=== PATIENT | male | born 1995 | race Caucasian/White ===

== ENCOUNTER 2020-07-27 19:35 | Outpatient (CLI) | payer SELFPAY ==
[2020-07-27 20:03] LABS: PH Semen 8.5 (7.0-8.0); Viscosity Semen High Viscosity
[2020-07-27 20:06] LABS: Red Blood Count Semen 0-4 /hpf
[2020-07-27 21:15] LABS: Sperm Immotility 55 % (50-60); Sperm Non-Progressive Motility 4 % (5-10); Sperm Progressive Motility 41 % (31-34)
[2020-07-27 21:29] LABS: Side 2 88
[2020-07-27 21:30] LABS: Side 1 79
[2020-07-28 07:22] LABS: Pathology Referral Yes; Sperm Vitality-% Live Sperm 95 %
== END 2020-07-27 19:36 | disposition home or self-care (01) ==
LOC: LAB 19:37
PROVIDERS: Family Provider Pediatrics; Visit Provider Nurse Practitioner Women's Health
DX: N46.9 Male infertility, unspecified (principal)
CPT/HCPCS: 80500; 89320

== ENCOUNTER 2021-02-15 00:25 | Outpatient (CLI) | payer SELFPAY ==
[2021-02-15 00:44] LABS: Viscosity Semen High Viscosity
[2021-02-15 01:41] LABS: Red Blood Count Semen 0-4 /hpf; Sperm Non-Progressive Motility 8 % (5-10); Sperm Progressive Motility 21 % (31-34); White Blood Count Semen 0-4 /hpf
[2021-02-15 01:44] LABS: Side 1 106
[2021-02-15 01:45] LABS: Side 2 101; Sperm Count 103.5 mill/mL (40-160)
[2021-02-15 02:33] LABS: Pathology Referral Yes; Sperm Vitality-% Live Sperm 62 %
[2021-02-15 02:44] LABS: Sperm Immotility 70 % (50-60)
== END 2021-02-15 00:26 | disposition home or self-care (01) ==
LOC: LAB 00:29
PROVIDERS: Visit Provider Obstetrics & Gynecology
DX: N46.9 Male infertility, unspecified (principal)
CPT/HCPCS: 80500; 89320

== ENCOUNTER 2021-07-24 22:38 | Emergency (ER) | payer OTHER, SELFPAY ==
[2021-07-24 22:52] VITALS: BP 144/97; PULSE 69; RESP 20; TEMP 36.8; O2SAT 98; BMI 25.0
--- NOTE | 2021-07-24 22:58 | CTR_ITS ---
PROCEDURE INFORMATION: Exam: CT Abdomen And Pelvis Without Contrast Exam date and time: 07/24/2021 10:58 PM Age: 25 years old Clinical indication: Abdominal pain; Localized; Left lower quadrant (llq); Patient HX: Llq pain; Additional info: Left sided abd pain TECHNIQUE: Imaging protocol: Computed tomography of the abdomen and pelvis without contrast. Radiation optimization: All CT scans at this facility use at least one of these dose optimization techniques: automated exposure control; mA and/or kV adjustment per patient size (includes targeted exams where dose is matched to clinical indication); or iterative reconstruction. COMPARISON: No relevant prior studies available. RADIATION DOSE METRICS: Total DLP (mGy-cm): 937.79 FINDINGS: Lungs: Slight stranding in the right middle lobe. Mediastinal space: Small hiatal hernia. Liver: Unremarkable liver. Gallbladder and bile ducts: No calcified gallstones or biliary ductal dilatation. Pancreas: Unremarkable pancreas. Spleen: No splenomegaly. Adrenal glands: No adrenal mass. Kidneys and ureters: A few tiny or small stones and increased density in multiple papillae in the kidneys. No right hydronephrosis. Mild left hydronephrosis and slight dilatation of the very proximal left ureter due to the 2 x 1.8 mm stone in the proximal aspect of this ureter. Stomach and bowel: Increased fat in the carlisle of the upper colon, but no apparent colonic wall thickening. No obstruction. Appendix: Normal appendix. Intraperitoneal space: No free air. Mild central calcification in the ovoid 9 x 13 mm circumscribed mass between the rectum and seminal vesicles. Vasculature: Unremarkable. Lymph nodes: Enlarged right mediastinal nodes. No enlarged nodes elsewhere. Urinary bladder: Unremarkable as visualized. Reproductive: Unremarkable as visualized. Bones/joints: Old slight compression fractures. Degeneration of a few discs. Soft tissues: No acute finding. CT/CT kidney stone [id number] IMPRESSION: 1. 2 x 1.8 mm stone in the proximal left ureter causing mild obstruction. Nephrolithiasis. 2. Increased fat in the carlisle of the upper colon indicating the possibility of chronic inflammation. 3. Calcified node or peritoneal inclusion body in the pelvis. Small hiatal hernia. Other findings detailed above. COMMENTS: Consistent with the [employer]'s Incidental Findings Committee white paper ([employer] 2018): Any incidental renal lesion less than 1 cm or classified as too small to characterize, or any incidental cystic renal lesion characterized as simple-appearing, is likely benign. No follow-up imaging is recommended for these lesions per consensus recommendations based on imaging criteria. Radiation Dose CTDIVOL = (mGy): DLP = 937.79 (mGy-cm)
[2021-07-24 23:03] VITALS: RESP 16
[2021-07-24] MEDS: HYDROmorphone 1 mg/mL INJ 1 mL IVP (23:03)
[2021-07-24 23:05] LABS: Basophils % 0.3 %; Eosinophils # 0.3 10^3/uL (0.0-0.8); Eosinophils % 2.4 %; Hemoglobin 16.2 g/dL (11.7-16.6); Lymphocytes # 2.4 10^3/uL (0.8-4.8); Lymphocytes % 18.1 %; Mean Corpuscular HGB Conc 35.2 g/dL (30.0-36.0); Mean Corpuscular Hemoglobin 31.2 pg (28.0-34.0); Mean Corpuscular Volume 88.6 fl (80-94); Mean Platelet Volume 9.7 fL (7.4-10.4); Monocytes # 0.8 10^3/uL (0.2-0.9); Neutrophils # 9.53 10^3/uL (1.8-7.7); Neutrophils % 72.9 %; Nucleated Red Blood Cells % 0 %; Platelet Count 333 10^3/cmm (130-400); Red Blood Count 5.19 10^6/uL (4.1-5.3); Red Cell Distribution Width 11.8 % (12.1-15.1); White Blood Count 13.1 10^3/uL (4.0-10.0)
[2021-07-24] MEDS: ondansetron 2 mg/ML SDV 2 mL 4 MG IVP (23:06)
[2021-07-24] MEDS: sodium chloride 0.9% 1,000 ML 999 ML IV (23:06)
[2021-07-24 23:08] VITALS: BP 134/72; PULSE 102; RESP 18; TEMP 37.2; O2SAT 99
[2021-07-24 23:20] LABS: Alanine Aminotransferase 24 U/L (0-41); Albumin Level 4.8 g/dL (3.5-5.2); Alkaline Phosphatase 83 IU/L (40-130); Anion Gap 18.4 (5-19); Aspartate Amino Transferase 17 U/L (0-40); Blood Urea Nitrogen 12 mg/dL (6-20); C Reactive Protein 1.3 mg/L (0.0-4.9); Calcium 9.8 mg/dL (8.5-10.5); Carbon Dioxide 24 mmol/L (22-29); Chloride 99 mmol/L (98-107); Creatinine Clr Calc Pharmacy 113.7854; Globulin 3.3 g/dL (1.3-4.6); Glomerular Filtration Rate 102.8 mL/min (90-130); Glucose 141 mg/dL (65-115); Lipase 15 U/L (13-60); Osmolality Calculated 288 mOsm/kg (285-295); Potassium 3.4 mmol/L (3.5-5.1); Sodium 138 mmol/L (136-145); Total Bilirubin 0.7 mg/dL (0.15-1.2); Total Protein 8.1 g/dL (6.6-8.7)
[2021-07-25 00:07] VITALS: RESP 15
[2021-07-25] MEDS: HYDROmorphone 1 mg/mL INJ 1 mL IVP (00:07)
--- NOTE | 2021-07-25 01:12 | W.ED.ABDPA2 ---
HPI - Abdominal Pain General: Chief Complaint: Abdominal Pain Stated Complaint: L ABD Pain Time Seen by Provider: 07/24/21 22:48 History of Present Illness: HPI narrative: 25-year-old male with left flank pain today radiating into his belly and groin. Has not had this pain before. He states he had a similar pain 2 days ago, seem to go away, but was much worse today. Nausea, no fever, no vomiting, no diarrhea. No hematuria that he knows of MD elicited complaint: abdominal pain and flank pain Pertinent past history: none Onset (ago): hour(s) Pain Consistency: intermittent Location: L flank Severity: moderate Quality: cramping and stabbing Radiation: suprapubic and L flank Relieving factors: nothing Associated Symptoms: Reports nausea; Denies change in bowel habits, change in stool character, chills, constipation, diarrhea, dysuria and fever(s) Review of Systems Const: Denies: fever(s) or chills Eyes: Denies: change in vision Card: Denies: chest pain or palpitations Resp: Denies: dyspnea, productive cough or non-productive cough GI: Reports: nausea; Denies: diarrhea, constipation, change in bowel habits or change in stool character : Reports: flank pain; Denies: difficulty urinating or dysuria PFSH ED PFSH: Family History Father CAD (coronary artery disease) Social History Smoking and tobacco status: light tobacco smoker smokeless tobacco Smokeless tobacco user: chewing tobacco Alcohol intake: current Alcohol intake frequency: holidays/special occasions only Marital status: Current occupational status: employed Physical Exam Const: COMMON NORMALS: patient oriented x3 GENERAL APPEARANCE: cooperative, in distress and ill appearing HENMT: COMMON NORMALS: normocephalic HEAD & SCALP: normocephalic Eye: COMMON NORMALS: Equal, round and reactive pupils present and EOMs intact bilaterally PUPIL: Yes Equal, round and reactive pupils present Neck/C-Spine: COMMON NORMALS: no lymphadenopathy Chest: COMMONS NORMALS: normal inspection of the chest Resp: COMMON NORMALS: normal respiratory effort, No use of accessory muscles and clear to auscultation bilaterally AUSCULTATION: clear to auscultation bilaterally Cardio: COMMON NORMALS: regular rhythm RATE: tachycardic RHYTHM: regular rhythm GI: COMMON NORMALS: Soft to palpation INSPECTION: Yes normal to inspection PALPATION: Yes Soft to palpation and Yes Tenderness to palpation present (GI) Details: LLQ : BLADDER/KIDNEY EXAM: Yes CVA tenderness on the left Back/Pelvis: GENERAL BACK: Yes CVA tenderness Neuro: COMMON NORMALS: patient oriented x3 Course Vital Signs: Vital signs: Vital Signs Temperature 98.9 F 07/25/21 02:29 Pulse Rate 74 07/25/21 02:29 Respiratory Rate 15 07/25/21 02:29 Blood Pressure 134/72 07/24/21 23:08 Pulse Oximetry 97 07/25/21 02:29 MDM - Abdominal Pain MDM Narrative: Medical decision making narrative: 2 x 1.8 mm stone in the left proximal ureter causing mild hydronephrosis, likely the source of his symptoms. Laboratory is benign. Awaiting urinalysis. Urinalysis shows hematuria. It is negative for infection. He will be allowed home with pain medication, symptom control otherwise. Lab Data: Labs: Lab Results 07/24/21 07/24/21 07/25/21 22:53 22:53 01:40 WBC 13.1 10^3/uL H 10 ^3/uL (4.0-10.0) RBC 5.19 10^6/uL 10^6 /uL (4.1-5.3) Hgb 16.2 g/dL g/dL (11.7-16.6) Hct 46.0 % % (42.0-52.0) MCV 88.6 fl fl (80-94) MCH 31.2 pg pg (28.0-34.0) MCHC 35.2 g/dL g/dL (30.0-36.0) RDW 11.8 % L % (12.1-15.1) Plt Count 333 10^3/cmm 10^3 /cmm (130-400) MPV 9.7 fL fL (7.4-10.4) Neut % (Auto) 72.9 % % Lymph % (Auto) 18.1 % % Talbot % (Auto) 6.0 % % Eos % (Auto) 2.4 % % Baso % (Auto) 0.3 % % Neut # (Auto) 9.53 10^3/uL H 10 ^3/uL (1.8-7.7) Lymph # (Auto) 2.4 10^3/uL 10^3/ uL (0.8-4.8) Talbot # (Auto) 0.8 10^3/uL 10^3/ uL (0.2-0.9) Eos # (Auto) 0.3 10^3/uL 10^3/ uL (0.0-0.8) Baso # (Auto) 0.0 10^3/uL 10^3/ uL (0.0-0.1) Nucleated RBC % (a uto) 0 % % Nucleated RBCs # 0.0 /100WBC /100W BC Sodium 138 mmol/L mmol/L (136-145) Potassium 3.4 mmol/L L mmol /L (3.5-5.1) Chloride 99 mmol/L mmol/L (98-107) Carbon Dioxide 24 mmol/L mmol/L (22-29) Anion Gap 18.4 (5-19) BUN 12 mg/dL mg/dL (6-20) Creatinine 0.9 mg/dL mg/dL (0.7-1.2) GFR Calculation 102.8 mL/min mL/m in (90-130) Glucose 141 mg/dL H mg/dL (65-115) Calculated Osmolal ity 288 mOsm/kg mOsm/ kg (285-295) Calcium 9.8 mg/dL mg/dL (8.5-10.5) Total Bilirubin 0.7 mg/dL mg/dL (0.15-1.2) AST 17 U/L U/L (0-40) ALT 24 U/L U/L (0-41) Alkaline Phosphata se 83 IU/L IU/L (40-130) C-Reactive Protein 1.3 mg/L mg/L (0.0-4.9) Total Protein 8.1 g/dL g/dL (6.6-8.7) Albumin 4.8 g/dL g/dL (3.5-5.2) Globulin 3.3 g/dL g/dL (1.3-4.6) Lipase 15 U/L U/L (13-60) Urine Color Nelsy (Yellow) Urine Appearance Sl cloudy A (CLEAR) Urine pH 5 (5-7) Ur Specific Gravit y 1.025 (1.005-1.030) Urine Protein 2+ H (Negative) Urine Glucose (UA) Norm (Normal) Urine Ketones 1+ H (Negative) Urine Blood 3+ H (Negative) Urine Nitrate Negative (Negative) Urine Bilirubin 1+ H (Negative) Urine Urobilinogen 1 mg/dL H mg/dL (Negative) Ur Leukocyte Zena ase Trace H (Negative) Urine RBC >100 /hpf H /hpf (0-2) Urine WBC 5-10 /hpf H /hpf (0-5) Ur Squamous Epith Cells 0-4 /hpf H /hpf (0-5) Amorphous Sediment Not Reportable Urine Bacteria 4+ /hpf H /hpf (NONE) Discharge Plan Discharge Patient Disposition: Home Clinical Impression: Ureterolithiasis Condition: Stable Prescriptions: New Zofran 4 mg tablet 4 mg PO Q6H PRN (Reason: nausea and vomiting) Qty: 10 RF: 0 Percocet 7.5-325 mg tablet 1 tab PO Q6H PRN (Reason: pain) Qty: 10 RF: 0 Flomax 0.4 mg capsule 0.4 mg PO DAILY Qty: 7 RF: 0 No Action sulfamethoxazole-trimethoprim 800-160 mg tablet 1 tab PO BID Qty: 60 RF: 3 Discharge Orders: Discharge ED (Routine); Ordered 07/25/21 Ordered By: Bo Howe Discharge Diet: Advance as tolerated Discharge Activity: Increase activity as tolerated Patient Instructions: Kidney Stones (ED), Opioid Safety Activity Restrictions/Additional Instructions: Return for fever greater than 100, vomiting liquids or medications, inability to control pain sufficiently with medication, other concerning symptoms. Take the Flomax daily to increase your chance of passing the stone on your own. Call urology Tuesday for follow-up appointment. Use pain and nausea medication as needed. Coding Level of Care Code ED Leadership Program Intern for Staci Fwd Exam Comprehensive
[2021-07-25 01:49] LABS: Add Urine Microscopic? YES; Bilirubin Urine 1+ (Negative); Blood Urine 3+ (Negative); Glucose Urine UA Norm (Normal); Ketones Urine 1+ (Negative); Leukocyte Esterase Urine Trace (Negative); Nitrate Urine Negative (Negative); Protein Urine 2+ (Negative); Specific Gravity, Urine 1.025 (1.005-1.030); Urine Color Amber (Yellow); Urobilinogen Urine 1 mg/dL (Negative); pH Urine 5 (5-7)
[2021-07-25] MEDS: sodium chloride 0.9% 1,000 ML 999 ML IV (01:53)
[2021-07-25 01:54] LABS: Add Urine Culture? Yes; Bacteria Urine 4+ /hpf; RBC Urine >100 /hpf (0-2); Squamous Epithelial Cell Urine 0-4 /hpf (0-5)
[2021-07-25 02:29] VITALS: PULSE 74; RESP 15; TEMP 37.2; O2SAT 97
== END 2021-07-25 02:25 | disposition home or self-care (01) ==
PROVIDERS: Emergency Provider Emergency Medicine
DX: N20.1 Calculus of ureter (principal); F17.220 Nicotine dependence, chewing tobacco, uncomplicated
CPT/HCPCS: 74176; 80053; 81001; 83690; 85025; 86140; 87086; 96361; 96374; 96375; 96376; 99284; J1170; J2405; J7030

== ENCOUNTER 2021-07-29 09:54 | Outpatient (CLI) | payer OTHER, SELFPAY ==
--- NOTE | 2021-07-29 09:59 | XR_ITS ---
WS: [id number] Exam: XR KUB [id number] Date/Time of Exam: 07/29/2021 10:08 AM Reason For Exam: STONES No bowel obstruction or free air. No calcifications seen in the region of the kidneys. Visualized org an margins appear normal. Regional bony elements are intact. XR/XR KUB [id number] IMPRESSION: 1. No acute abdominal process.
== END 2021-07-29 09:55 | disposition home or self-care (01) ==
PROVIDERS: Visit Provider Urology
DX: N20.1 Calculus of ureter (principal)
CPT/HCPCS: 74018; 81003

== ENCOUNTER 2021-08-07 08:05 | Outpatient (CLI) | payer OTHER, SELFPAY ==
--- NOTE | 2021-08-07 08:00 | XR_ITS ---
WS: [id number] XR KUB [id number] REASON FOR EXAM: ureterolithiasis FINDINGS: No right intrarenal calculi can be identified. The small left intrarenal calculi identified on the CT scan of 07/24/2021 are not identifiable. Previous CT scan demonstrated a left ureteral calculus at the L3 level. This calculus is faintly visi ble just below the left L3 transverse process on the abdomen film of 07/29/2021. Subtle density, possibly the same calculus is seen midway between the left transverse processes of L3 and L4 on the current study. No other significant abdominal abnormality. XR/XR KUB [id number] IMPRESSION: Equivocal identification of left ureteral calculus as above.
== END 2021-08-07 08:06 | disposition home or self-care (01) ==
PROVIDERS: Visit Provider Urology
DX: N20.1 Calculus of ureter (principal)
CPT/HCPCS: 74018; 81003

== ENCOUNTER → 2024-10-09 09:11 | Outpatient (BNVA) | payer OTHER, SELFPAY | PROVIDERS: PCP Family Medicine; Visit Provider Family Medicine | DX: K44.9 Diaphragmatic hernia without obstruction or gangrene (principal); E66.3 Overweight | CPT/HCPCS: 80053; 80061; 84439; 84443; 85025 ==

== ENCOUNTER 2024-10-14 19:26 | Emergency (ER) | payer OTHER, SELFPAY ==
[2024-10-14 19:42] VITALS: BP 125/84; PULSE 66; RESP 16; TEMP 37.1; O2SAT 98
--- NOTE | 2024-10-14 21:07 | ED_ITS ---
HPI - Skin/Abscess/Foreign Bdy General: Chief complaint: Skin/Abscess/Foreign Body Stated complaint: infection making joints stiff Time Seen by Provider: 10/14/24 20:57 History of Present Illness: 29-year-old man who presents to the [facility] room with continued cellulitic infection on his head and neck. He was seen by primary. They started him on Bactrim. However only 1 tab twice daily. Related Data Previous Rx's Medication Instructions Recorded ropinirole 0.25 mg tablet 0.25 mg PO DAILY #30 tabs 10/09/24 sulfamethoxazole 800 1 tab PO BID 10 days #20 tabs 10/13/24 mg-trimethoprim 160 mg tablet mupirocin 2 % topical ointment 1 applic topical TID #22 grams 10/14/24 prednisone 20 mg tablet 60 mg (3 x 20 mg) PO DAILY #20 tabs 10/14/24 sulfamethoxazole 800 2 tab PO BID 10 days #40 tabs 10/14/24 mg-trimethoprim 160 mg tablet (Bactrim DS) Allergies Allergy/AdvReac Type Severity Reaction Status Date / Time Penicillins Allergy Unknown Unknown Verified 10/14/24 19:48 Review of Systems Narrative: Constitutional symptoms: Negative except as documented in HPI. Skin symptoms: Negative except as documented in HPI. Eye symptoms: Negative except as documented in HPI. ENMT symptoms: Negative except as documented in HPI. Respiratory symptoms: Negative except as documented in HPI. Cardiovascular symptoms: Negative except as documented in HPI. Gastrointestinal symptoms: Negative except as documented in HPI. Genitourinary symptoms: Negative except as documented in HPI. Musculoskeletal symptoms: Negative except as documented in HPI. Neurologic symptoms: Negative except as documented in HPI. Psychiatric symptoms: Negative except as documented in HPI. Endocrine symptoms: Negative except as documented in HPI. PFSH ED PFSH: Medical History (Updated 10/14/24 @ 21:05 by Susie Barboza MD) Hiatal hernia History of nephrolithiasis Bilateral leg pain Overweight (BMI 25.0-29.9) Left ureteral calculus Family History Father CAD (coronary artery disease) Father Hypertension Social History (Updated 10/09/24 @ 08:24 by Mary Perez LPN) Smoking and tobacco/nicotine status: never used tobacco/nicotine Alcohol intake: current Alcohol intake frequency: holidays/special occasions only Substance/Drug Use: never Marital status: Current occupational status: employed Physical Exam Narrative: EXAM NARRATIVE: General: Alert, no acute distress. Skin: warm and dry. Patient has some vesicular lesions on his neck. Then some other lesions that just appear more like a simple cellulitis. Possibly as bad contact dermatitis Head: Normocephalic Neck: Trachea midline Eye: Extraocular movements are intact. Ears, nose, mouth and throat: Oral mucosa moist Respiratory: Respirations are non-labored Musculoskeletal: Normal ROM Neurological: Alert and oriented, No focal neurological deficit observed. Psychiatric: Cooperative, appropriate mood & affect. Course Vital Signs: Vital signs: Vital Signs Temperature 98.7 F 10/14/24 19:42 Pulse Rate 66 10/14/24 19:42 Respiratory Rate 16 10/14/24 19:42 Blood Pressure 125/84 10/14/24 19:42 Pulse Oximetry 98 10/14/24 19:42 MDM - Skin/Abscess/Foreign Bdy Medicial Decision Making Discussed with the patient if this does not improve with appropriate Bactrim dos ing and steroids and antibiotic cream that he needs to go see a cna hha. Assessment and plan: Cellulitis ?Increasing Bactrim to therapeutic 2 tabs twice daily. - Discharged home - Discussed plan with patient. Answered any questions. - Evaluation and treatment of this problem were appropriate in the emergency setting. No radiology studies performed this visit Discharge Plan Discharge Patient Disposition: Home Clinical Impression: Cellulitis Condition: Stable Prescriptions: New sulfamethoxazole-trimethoprim [Bactrim DS] 800-160 mg tablet 2 tab PO BID 10 Days Qty: 40 0RF mupirocin 2 % ointment 1 applic topical TID Qty: 22 0RF prednisone 20 mg tablet 60 mg PO DAILY Qty: 20 0RF Rx Instructions: 3 tabs (60 mg) x 3 days. 2 tabs (40 mg) x 3 days. 1 tab (20 mg) x 3 days. 1/2 tab (10 mg) x 4 days No Action ropinirole 0.25 mg tablet 0.25 mg PO DAILY Qty: 30 0RF sulfamethoxazole-trimethoprim 800-160 mg tablet 1 tab PO BID 10 Days Qty: 20 0RF Discharge Orders: Discharge ED (Routine); Ordered 10/14/24 Ordered By: Susie Barboza Referrals: Kayden Dunaway MD [Primary Care Provider] - Discharge Diet: Usual diet Discharge Activity: Increase activity as tolerated Patient Instructions: Opioid Safety, Pain Management Activity Restrictions/Additional Instructions: Thank you for choosing [facility] for your healthcare needs today. Please realize this is an emergency room and that we are providing you with a medical screening exam and this may not be complete and all inclusive of all the testing and or work up that you may need to determine your ailment or severity of your illness. You have been screened and evaluated and felt safe for discharge. Health conditions do change or evolve sometimes and as such it is important that you follow up with your Primary Doctor to be re checked, 3-5 days is a general good time frame for follow up. You are always welcome to return to the ED for re as sessment if your symptoms are worsening or you have new concerns Coding Level of Care Code ED Insurance Marketing Specialist for Staci Mcclelland
[2024-10-14] MEDS: cefTRIAXone 1,000 MG in water for injection-sterile 2.1 ML 1 MG IM (21:41)
[2024-10-14] MEDS: dexamethasone 10 mg/mL INJ IM (21:42)
[2024-10-14 22:12] VITALS: BP 128/84; PULSE 69; RESP 18; TEMP 37.4; O2SAT 99
== END 2024-10-14 22:14 | disposition home or self-care (01) ==
PROVIDERS: Emergency Provider Emergency Medicine; PCP Family Medicine
DX: L03.221 Cellulitis of neck (principal); L03.811 Cellulitis of head [any part, except face]
CPT/HCPCS: 96372; 99284; J0696; J1100